=== PATIENT | male | born 1940 | race Caucasian/White ===

== ENCOUNTER 2017-05-15 06:41 | Day surgery (SDC) | payer OTHER ==
[2017-05-03 13:00] VITALS: BMI 36.1
--- NOTE | 2017-05-14 09:00 | HP ---
Satellite [facility] - Chief Complaint Chief Complaint: left knee pain - Past Medical History Allergies/Adverse Reactions: Allergies Allergy/AdvReac Type Severity Reaction Status Date / Time No Known Drug Allergies Allergy Verified 05/03/17 12:31 - Current Medications Current Medications: Home Medications Medication Instructions Recorded Amlodipine Besylate [Norvasc -] 10 mg PO DAILY 04/10/14 Donepezil HCl [Aricept] 10 mg PO DAILY 04/10/14 Esomeprazole Mag Trihydrate 40 mg PO DAILY 04/10/14 [Nexium] Losartan Potassium [Cozaar] 50 mg PO DAILY 04/10/14 Memantine HCl [Namenda -] 10 mg PO DAILY 04/10/14 Mesalamine [Asacol HD -] 1,600 mg PO TID 04/10/14 Aspirin [Kennedi Chewable] 81 mg PO DAILY 05/03/17 Cholecalciferol (Vitamin D3) 1,000 unit PO DAILY 05/03/17 [Vitamin D3] Cyanocobalamin [Vitamin B12 -] 1,000 mcg PO DAILY 05/03/17 Ferrous Sulfate 325 mg PO DAILY 05/03/17 Gabapentin 300 mg PO TID 05/03/17 Mirabegron [Myrbetriq] 25 mg PO DAILY 05/03/17 Rosuvastatin Calcium [Crestor] 10 mg PO HS 05/03/17 Solifenacin Succinate [Vesicare -] 5 mg PO BID 05/03/17 Satellite Physical Exam - Physical Examination General Appearance: Well Nourished, Well Developed, Alert & Oriented x3 ENT: Clear Lung: Normal air movement Heart: Regular rate & rhythm Extremities: Other (left knee- + swelling, + ttp, dec rom nvi xrays show grade 4 medial djd) Neurological: Intact, Alert, Oriented Satellite Impression/Plan - Impression/Plan Impression: left knee medial djd Operative Procedure: left medial [place] u[place] Date to be Performed: 05/15/17
[2017-05-15] MEDS ORDERED: CELECOXIB 200 MG CAPSULE PO ONE (07:38)
[2017-05-15] MEDS ORDERED: ROPIVICAINE 0.2%/MORPH PF/KETOROLAC - 51ML DISP.SYRINGE IA ONE ×2 (07:38→11:22)
[2017-05-15] MEDS ORDERED: TRANEXAMIC ACID 1000 MG/10 ML VIAL IVPUSH ONE (07:38)
[2017-05-15] MEDS ORDERED: CEFAZOLIN 2 GM in DEXTROSE 5%-WATER - 50 ML IVPB ONE (07:38)
[2017-05-15] MEDS ORDERED: GABAPENTIN 300 MG CAPSULE (FP) PO ONE (07:38)
[2017-05-15] MEDS ORDERED: ROPIVACAINE HCL 0.5% 30ML VIAL ONE (08:53)
[2017-05-15] MEDS ORDERED: MIDAZOLAM HCL 2 MG/2 ML SINGLE DOSE VIAL ONE (08:53)
[2017-05-15] MEDS ORDERED: DEXAMETHASONE SOD PHOSPHATE/PF 10 MG/ML SDV ONE (08:53)
[2017-05-15] MEDS ORDERED: ceFAZolin SODIUM 1 GM VIAL ONE ×2 (09:12→10:13)
[2017-05-15] MEDS ORDERED: GELATIN, ABSORBABLE 100 EACH SPONGE TP ONE ×2 (09:12→11:14)
[2017-05-15] MEDS ORDERED: THROMBIN (BOVINE) 5,000 UNIT VIAL TP ONE ×2 (09:12→11:14)
[2017-05-15] MEDS ORDERED: BUPIVACAINE HCL/PF (5 MG/ML) 30 ML VIAL IJ ONE (09:49)
[2017-05-15] MEDS ORDERED: TRANEXAMIC ACID 1000 MG/10 ML VIAL ONE ×2 (10:12→10:13)
[2017-05-15] MEDS ORDERED: MAG HYDROX/AL HYDROX/SIMETH 30 ML UNIT-DOSE CUP PO PRN (11:39)
--- NOTE | 2017-05-15 11:41 | OP ---
Operative Note - Note: Operative Date: 05/15/17 (deonna) Pre-Operative Diagnosis: left knee medial djd Operation: left medial [place] u[place] Post-Operative Diagnosis: Same as Pre-op Surgeon: Anastacio Bailon [place] Hand: [employer] [place] Anesthesia: Spinal, Local Specimens Removed: bone fragments Estimated Blood Loss (mls): 50 Operative Report Dictated: Yes
[2017-05-15] MEDS ORDERED: LACTATED RINGERS SOLUTION 1,000 ML IV SCH (11:45)
[2017-05-15] MEDS ORDERED: ONDANSETRON 4 MG/2 ML VIAL IVPUSH PRN (12:00)
[2017-05-15] MEDS: GABAPENTIN 300 MG CAPSULE (FP) PO SCH ×2 (13:48→22:05)
[2017-05-15] MEDS: oxyCODONE HCL 5 MG TABLET PO PRN ×2 (13:48→18:39)
[2017-05-15] MEDS ORDERED: PT OWN MED DRAWER 7, Y5N ONE ×2 (15:54→22:01)
[2017-05-15] MEDS: MESALAMINE 800 MG TABLET.DR PO SCH ×2 (15:56→22:06)
[2017-05-15] MEDS: CEFAZOLIN 2 GM/D5W 2 GM/50 ML ML IVPB SCH (18:02)
[2017-05-15] MEDS: ACETAMINOPHEN 325 MG TABLET (FP) PO PRN (18:40)
[2017-05-15] MEDS ORDERED: oxyCODONE HCL 5 MG TABLET PO PRN (18:47)
--- NOTE | 2017-05-15 20:03 | SPEC ---
DATE OF OPERATION: 05/15/2017 PREOPERATIVE DIAGNOSIS: Degenerative joint disease, left knee. POSTOPERATIVE DIAGNOSIS: Degenerative joint disease, left knee. PROCEDURE: Left medial unicompartmental knee replacement with robotic-assisted navigation (MAKOplasty) and patelloplasty. SURGICAL ATTENDING: Anastacio Bailon MD SHOPFITTER: TESSIE Nieto ANESTHESIA: Regional and spinal. CLOSURE: Medial JO ANN components with a 5 femur, 6 tibia, and 9 polyethylene; No. 1 Vicryl, fascia; 0 and 2-0, subcutaneous; 3-0 Monocryl subcuticular with skin glue for skin; 4-0 undyed Vicryl for pin sites. ESTIMATED BLOOD LOSS: Negligible. COMPLICATIONS: None. CONDITION: To recovery in stable condition. DESCRIPTION OF OPERATIVE PROCEDURE: Patient was taken to the operating room on May 15, 2017. Spinal and regional anesthesia was administered by the anesthesiologist. IV Kefzol and TXA were administered prophylactically prior to the case. A well-padded pneumatic tourniquet was placed on the left proximal thigh. The left lower extremity was prepped and draped in the usual sterile fashion. A 6- to 8-cm longitudinal incision over the medial side of the patella from mid patella to the tibial tubercle was incised and was deepened using Bovie cautery. An arthrotomy was then made just medial to the patellar tendon and the patella. Subperiosteal dissection was done on the anteromedial proximal tibia all the way back to the MCL. Partial fat pad excision was performed, exposing the medial compartment. Checkpoint was malleable at both the femur and the tibia. Using 2 stab incisions in the femur 1 handbreadth above the patella on the femur and 2 stab incisions 1 handbreadth below the tibial tubercle on the tibia, 2 threaded pins were drilled in parallel fashion from anterior to posterior, going through the proximal cortex and engaging the 2nd but not through the 2nd cortex. To these threaded pins were fastened navigation rays, 1 on the femur and 1 on the tibia. The knee was then registered with the navigation device with the center of the rotation of the hip, medial and lateral malleoli, and multiple points both on the femur and on the tibia. Excellent registration of less than 0.5 mm was obtained on both to ensure adequate registration. The navigation device ensured us to "pop the bubbles" both on the femur and the tibia and that was performed and passed registration. The knee was then thoroughly inspected to remove all osteophytes both on the femur and the tibia. Also, osteophytes on the trochlea and on the surface of the patella were removed as well. The knee was then stressed with valgus stress at 0, 30, 60, 90, and 120 degrees of flexion. This propagated a looseness/tightness graft. The virtual positions of the components were then optimized to ensure an excellent graft. The tracking also was optimized by manipulating the virtual position to ensure that the femoral component articulated with the central portion of the tibial component. The robot was then brought into the field and was registered. The robot was used to bur the bone on both the femur and the tibia as to the specifications of the components. The trial components were then applied on both the femur and the tibia with an appropriate polyethylene insert. The knee was taken through a range of motion and found to have full extension, full flexion, with excellent stability. Stressing the graft revealed an excellent looseness/tightness graft with the trial components in place. The trial components were removed. The knee was thoroughly irrigated with a copious amount of antibiotic irrigation. The real components were then cemented in using modern generation cement techniques with antibiotic cement and pressurization. After the cement was hardened, the knee was thoroughly inspected to remove out all excess cement. The real polyethylene insert was then clipped into place. Range of motion and stability were again assessed to be as they were with the trials. At this time, the pins and the checkpoints were removed. The knee was again thoroughly irrigated. The arthrotomy was closed with No. 1 Vicryl, 0 and 2-0 subcutaneous, and 3-0 Monocryl subcuticular with skin glue for the skin, 4-0 undyed Vicryl for the pin sites. Sterile pressure dressing was placed over the knee. Patient awakened from anesthesia and transferred to recovery in stable condition. No complications. Estimated blood loss negligible. X-rays postoperatively revealed excellent position of the components. Tello [id number]
[2017-05-15] MEDS ORDERED: SOLIFENACIN SUCCINATE 5 MG TAB (FP) PO SCH (22:00)
[2017-05-15] MEDS ORDERED: ROSUVASTATIN CA 10 MG TABLET (FP) PO SCH (22:00)
[2017-05-15] MEDS: SENNOSIDES/DOCUSATE COMBO (SENNA PLUS) TABLET (UD) PO SCH (22:05)
[2017-05-16] MEDS: CEFAZOLIN 2 GM/D5W 2 GM/50 ML ML IVPB SCH (01:38)
[2017-05-16] MEDS ORDERED: PT OWN MED DRAWER 7, Y5N ONE (05:31)
[2017-05-16] MEDS: GABAPENTIN 300 MG CAPSULE (FP) PO SCH (05:34)
[2017-05-16] MEDS: MESALAMINE 800 MG TABLET.DR PO SCH (05:35)
[2017-05-16 06:17] VITALS: BP 149/72; PULSE 92; TEMP 98.5
--- NOTE | 2017-05-16 08:19 | PN ---
Progress Note (short form) - Note Progress Note: Ortho Pt seen and examined s/p left medial [place] ukr pod #1 Selected Entries 05/16/17 05:00 Temperature 98.5 F Pulse Rate 92 H Respiratory 18 Rate Blood Pressure 149/72 dressing c/d/i, calf soft, nt rom 0-70, nvi a/p PT dvt ppx pain control d/c home today f/u in 1 week
--- NOTE | 2017-05-16 08:19 | DS ---
Physical Examination Vital Signs: Vital Signs Temperature 98.5 F 05/16/17 05:00 Pulse Rate 92 H 05/16/17 05:00 Respiratory Rate 18 05/16/17 05:00 Blood Pressure 149/72 05/16/17 05:00 O2 Sat by Pulse Oximetry (%) 94 L 05/15/17 22:47 Discharge Summary Reason For Visit: OSTEOARTHRITIS Procedures: Principal: s/p left medial [place] ukr Hospital Course: admitted for elective left medial [place] u[place], uneventful post-op, stable for d/c Condition: Good - Instructions Diet, Activity, Other Instructions: Post-op Instructions-Partial Knee Replacement Call the office for a follow-up appointment in 1 week - [phone] Aspirin 325mg daily for 6 weeks. Pain medication was sent into your pharmacy. Apply Graduated Compression Stockings (TEDs) to both lower extremities- remove daily for hygiene ONLY Apply Sequential Compression Device (SCDs) to both Lower extremities remove for PT and hygiene ONLY Apply cold packs to affected area for 15 minutes every 2 hours. Physical Therapist will come to your home for the first 5 days. You will be set up with outpatient PT at your first post-operative visit. Patient may ambulate as tolerated-encourage self care (at least every 2-3 hours while awake) with walker or cane Maintain Aquacel (waterproof) dressing to operative wound (will be removed by surgeon at first office visit) Shower with Aquacel dressing in place-if Aquacel integrity compromised, remove and apply dry sterile dressing and notify Orthopedist. DO NOT SHOWER unless Orthopedists approves without Aquacel dressing CONTACT THE OFFICE FOR ANY CHANGE IN YOUR CONDITION (for example-fever greater than 102 degrees, excessive bleeding from operative site, purulent drainage, severe swelling or pain) GO TO THE EMERGENCY ROOM IF THERE IS A MEDICAL EMERGENCY Knee Precautions: * Keep a rolled towel under affected heel while in bed or chair (to keep knee in extension) * Keep affected leg elevated except during mealtimes * DO NOT PLACE PILLOW UNDER AFFECTED KNEE * If you have any questions, please do not hesitate to call the office - . Referrals: Anastacio Bailon MD [Staff Physician] - Disposition: VNS/HOME HEALTH CARE - Home Medications Comprehensive Discharge Medication List: Ambulatory Orders Amlodipine Besylate [Norvasc -] 10 mg PO DAILY 04/10/14 Donepezil HCl [Aricept] 10 mg PO DAILY 04/10/14 Esomeprazole Mag Trihydrate [Nexium] 40 mg PO DAILY 04/10/14 Losartan Potassium [Cozaar] 50 mg PO DAILY 04/10/14 Memantine HCl [Namenda -] 10 mg PO DAILY 04/10/14 Mesalamine [Asacol HD -] 1,600 mg PO TID 04/10/14 Aspirin [Kennedi Chewable Aspirin] 81 mg PO DAILY 05/03/17 Cholecalciferol (Vitamin D3) [Vitamin D3] 1,000 unit PO DAILY 05/03/17 Cyanocobalamin [Vitamin B12 -] 1,000 mcg PO DAILY 05/03/17 Ferrous Sulfate 325 mg PO DAILY 05/03/17 Gabapentin 300 mg PO TID 05/03/17 Mirabegron [Myrbetriq] 25 mg PO DAILY 05/03/17 Rosuvastatin Calcium [Crestor] 10 mg PO HS 05/03/17 Solifenacin Succinate [Vesicare -] 5 mg PO BID 05/03/17 Oxycodone HCl/Acetaminophen [Percocet 5-325 mg Tablet] 1 - 2 tab PO Q6H #50 tab MDD 8 05/15/17
[2017-05-16] MEDS: ACETAMINOPHEN 325 MG TABLET (FP) PO PRN (09:39)
[2017-05-16] MEDS: SENNOSIDES/DOCUSATE COMBO (SENNA PLUS) TABLET (UD) PO SCH (09:40)
[2017-05-16] MEDS ORDERED: ENOXAPARIN NA (PORCINE) 40 MG/0.4 ML DISP.SYRIN SQ SCH (10:00)
[2017-05-16] MEDS ORDERED: PATIENT'S OWN MEDICATION (NON-FORMULARY) (Ferrous Sulfate [Ferrous Sulfate] 325 MG) PO SCH (10:00)
[2017-05-16] MEDS ORDERED: PANTOPRAZOLE 40 MG TABLET (FP) PO SCH (10:00)
[2017-05-16] MEDS ORDERED: PATIENT'S OWN MEDICATION (NON-FORMULARY) (Esomeprazole Mag Trihydrate [Nexium] 40 MG) PO SCH (10:00)
[2017-05-16] MEDS ORDERED: amLODIPine BESYLATE 10 MG TABLET (FP) PO SCH (10:00)
[2017-05-16] MEDS ORDERED: PATIENT'S OWN MEDICATION (NON-FORMULARY) (Mirabegron [Myrbetriq] 25 MG) PO SCH (10:00)
[2017-05-16] MEDS ORDERED: FERROUS SO4 325 MG TABLET (FP) PO SCH (10:00)
[2017-05-16] MEDS ORDERED: MEMANTINE HCL 10 MG TABLET (FP) PO SCH (10:00)
[2017-05-16] MEDS ORDERED: ENOXAPARIN NA (PORCINE) 30 MG/0.3 ML DISP.SYRIN SQ SCH (10:00)
[2017-05-16] MEDS ORDERED: LOSARTAN POTASSIUM 50 MG TABLET (FP) PO SCH (10:00)
[2017-05-16] MEDS ORDERED: MULTIVITAMINS (DAILY MVI) TABLET (FP) PO SCH (10:00)
[2017-05-16] MEDS ORDERED: DONEPEZIL HCL 10 MG TABLET (FP) PO SCH (22:00)
== END 2017-05-16 11:00 | disposition home health service (06) ==
LOC: FASU 06:41 → FM/S 07:38 → FASU 05-16 11:00
PROVIDERS: ATTEND Orthopaedic Surgery
PROC: 8E0YXBZ Computer Assisted Procedure of Lower Extremity (ICD-10-PCS; 2017-05-15)
PROC: 8E0Y0CZ Robotic Assisted Procedure of Lower Extremity, Open Approach (ICD-10-PCS; 2017-05-15)
PROC: 0SRD0L9 Replacement of Left Knee Joint with Medial Unicondylar Synthetic Substitute, Cemented, Open Approach (ICD-10-PCS; principal; 2017-05-15 09:30)
DX: M17.12 Unilateral primary osteoarthritis, left knee (principal)
CPT/HCPCS: 20985; 27446; C1776; S2900; 73560-TC-LT; 94010; 94760; 97116-GP; 97162-GP